=== PATIENT | female | born 1965 | race Caucasian/White ===

== ENCOUNTER 2024-11-21 13:17 | Emergency (ER) | payer MEDICAID ==
[~2024-11-21] VITALS: Ht 165.1 cm; Wt 64.2 kg
--- NOTE | 2024-11-21 14:23 | ELECTROCARDIOGRAPH REPORT ---
[facility] Test Date: 2024-11-21 Test Time: 14:20:32 Pat Name: BILLIE MARIANO Department: [facility]-ER Patient ID: [id number] Room: Gender: F Process Laboratory Specialist: : [id number] Requested By: FADY CUMMINS Order Number: [id number] Reading MD: Dr. Anthony Cooper Measurements Intervals [place] Rate: 98 P: 49 TX: 134 QRS: 51 QRSD: 90 T: 43 QT: 339 QTc: 433 Interpretive Statements Sinus tachycardia Atrial premature complexes Borderline T wave abnormalities Electronically Signed On 11-22-2024 6:40:[address] Anthony Cooper Please click the below link to view image of tracing.
--- NOTE | 2024-11-21 14:27 | RADIOLOGY REPORT ---
CHEST RADIOGRAPH Indication: cp Technique: Single frontal view of the chest was obtained COMPARISON: None FINDINGS: Lines and Tubes: None Lungs: Patchy opacities in the bilateral lower lobes. Pleura: No effusion. No pneumothorax. Cardiomediastinal contours: Unremarkable Bones: Unremarkable IMPRESSION: Patchy opacities in the bilateral lower lobes.
[2024-11-21 14:42] LABS: BASOPHILS % (AUTO) 0.4 % (0-1); EOSINOPHILS # (AUTO) 0.1 X10'3 (0-0.9); HEMATOCRIT 36.3 % (35.0-45.0); HEMOGLOBIN 12.6 g/dl (12.0-16.0); LYMPHOCYTES # (AUTO) 1.5 X10'3 (1.1-4.8); MEAN CORPUSCULAR HEMOGLOBIN 31.6 PG (27.0-31.0); MEAN CORPUSCULAR HGB CONC 34.7 g/dL (33.0-36.5); MEAN CORPUSCULAR VOLUME 91.1 FL (78-98); MEAN PLATELET VOLUME 7.2 FL (7.4-10.4); MONOCYTES # (AUTO) 0.7 X10'3 (0-0.9); MONOCYTES % (AUTO) 9.2 % (2-12); NEUTROPHILS # (AUTO) 4.8 X10'3 (1.8-7.7); NEUTROPHILS % (AUTO) 67.4 % (42-75); PLATELET COUNT 270 X10'3 (140-440); RED BLOOD COUNT 3.98 X10'6 (4.20-5.60); RED CELL DISTRIBUTION WIDTH 12.4 % (11.5-14.5); WHITE BLOOD COUNT 7.1 X10'3 (4.5-11.0)
[2024-11-21 14:49] LABS: BILIRUBIN,URINE NEGATIVE (Neg); CLARITY,URINE SLIGHTLY CLOUDY (Clear); COLOR,URINE YELLOW (Yellow); GLUCOSE, URINE NEGATIVE (Neg); KETONES,URINE NEGATIVE (Neg); LEUKOCYTE ESTERASE ,URINE NEGATIVE (Neg); NITRITES, URINE NEGATIVE (Neg); OCCULT BLOOD,URINE NEGATIVE (Neg); PH,URINE 6.5 (4.8-8.0); PROTEIN,URINE NEGATIVE (Neg); UROBILINOGEN,URINE 0.2 E.U/dL (0.2-1.0)
[2024-11-21 14:52] LABS: APTT 28 SECONDS (22-32); INR 1.1 INR; PROTHROMBIN TIME 10.9 SECONDS (9.0-12.0)
[2024-11-21 15:00] LABS: UA COLLECTION TYPE CLN CATCH MIDSTREAM
--- NOTE | 2024-11-21 15:03 | RADIOLOGY REPORT ---
INDICATION: upper abd pain TECHNIQUE: Multiple real-time sonographic images of the abdomen were obtained. COMPARISON: None FINDINGS: The liver is heterogeneous in echogenicity. The liver measures 17cm. No intrahepatic bilia ry ductal dilatation is noted. The gallbladder wall measures 0.2 cm and is unremarkable. No gallstones or sludge is seen. The commo n duct measures 0.5 cm and is unremarkable. No pericholecystic fluid is noted. The right kidney measures 10cm. No hydronephrosis. The pancreas is not well visualized due to obscuration from bowel gas. The visualized portions of the IVC and aorta are grossly unremarkable. IMPRESSION: Hepatic steatosis. 4 mm gallbladder polyp
[2024-11-21 15:04] LABS: RBC,URINE NONE SEEN /HPF (0-2); WBC,URINE 0-4 /HPF (0-4)
[2024-11-21 15:05] LABS: BACTERIA,URINE NONE SEEN /HPF (Neg); CAL OXALATE CRYSTALS 1+ /HPF (NEGATIVE); MUCUS STRANDS FEW /LPF (Neg); SQUAMOUS EPITHELIAL CELL,UR FEW /LPF (FEW)
[2024-11-21 15:18] LABS: ALANINE AMINOTRANSFERASE 29 U/L (12-78); ALBUMIN 3.5 G/DL (3.4-5.0); ALBUMIN/GLOBULIN RATIO 0.9 (1.1-1.5); ALKALINE PHOSPHATASE 85 IU/L (46-116); ASPARTATE AMINO TRANSFERASE 23 U/L (10-37); BILIRUBIN,TOTAL 0.5 MG/DL (0.1-1.0); BLOOD UREA NITROGEN 17 MG/DL (7-18); BUN/CREATININE RATIO 13.8 (10.0-20.0); CALCIUM 9.8 MG/DL (8.5-10.1); CHLORIDE 108 MMOL/L (99-107); CREATININE 1.23 MG/DL (0.40-0.90); GLUCOSE 106 MG/DL (70-104); LIPASE 33 U/L (16-77); POTASSIUM 3.6 MMOL/L (3.5-5.1); TOTAL CARBON DIOXIDE 20.5 MMOL/L (24-32); TOTAL PROTEIN 7.3 G/DL (6.4-8.2); eCRCL 45 ML/MIN; eGFR 45 ML/MIN
[2024-11-21 15:21] VITALS: BP 120/68; PULSE 98; TEMP 98.4; O2SAT 100
[2024-11-21 15:22] LABS: ANION GAP 15 (8-16); SODIUM 143 MMOL/L (135-145)
--- NOTE | 2024-11-21 15:27 | RADIOLOGY REPORT ---
Exam: CT CT ABDOMEN PELVIS History: pain upper abd Comparison Study: None Technique: Multidetector spiral CT of the abdomen and pelvis was performed from lung bases to pubic symphysis. Imaging was performed without IV contrast. Axial, coronal and sagittal multiplanar reform ats were obtained from the axial data set by the technologist. Radiation dose : Abdomen/Pelvis: CTDIvol 12 mGy, DLP 606 mGy*cm. Findings: Evaluation of solid organs is limited due to lack of intravenous contrast use. Lung Bases: No acute or significant lung base finding. Normal heart size. No pleural or pericardial effusion. Liver: The liver is normal in size. No focal lesions. Gallbladder and biliary Tree: Unremarkable Spleen: Unremarkable Pancreas: The pancreas is grossly normal in appearance. Adrenal Glands: Right adrenal nodule measuring up to 14 mm. Kidneys: Left lower pole renal calculus measuring up to 3 mm. No hydronephrosis. Bladder: Grossly unremarkable for degree of distention. Bowel: The stomach is grossly normal in appearance. Small bowel loops in the left abdomen with wall t hickening. Fluid in the colon. Normal appendix is visualized in the right lower quadrant without find ings of appendicitis. Ascites: Trace free fluid in the pelvis. Lymphadenopathy: Subcentimeter retroperitoneal and mesenteric lymph nodes. Abdominal wall and Mesentery: Diffuse mesenteric nodularity, largest measuring up to 40 mm in the lef t mid abdomen. Vasculature: The visualized abdominal aorta is normal in size and caliber. Evaluation of abdominal a nd pelvic vessels is limited due to lack of intravenous contrast. Pelvic Organs: Unremarkable Musculoskeletal: Grade 1 anterolisthesis of L4 on L5 and L5 on S1. IMPRESSION: 1. Abnormal CT of the abdomen and pelvis. Diffuse peritoneal carcinomatosis with largest mass in the left mid abdomen measuring up to 40 mm. Findings are concerning for a malignant process. There is s mall bowel wall thickening in the left mid abdomen which could be primary source. Recommend further evaluation with CT of the abdomen and pelvis with intravenous contrast. Consider PET-CT. CT-guided b iopsy of the largest peritoneal mass could also be performed. 2. Right adrenal nodule. Left renal calculus. Trace pelvic ascites. Subcentimeter retroperitoneal an d mesenteric lymph nodes. Radiation optimization: All CT scans at this facility use at least one of these dose optimization mary hniques: Automated exposure control mA and/or kV adjustment per patient size (includes targeted exams where dose is matched to clinical indication) or iterative reconstruction. HS:Y
[2024-11-21 15:55] VITALS: RESP 16
[2024-11-21] MEDS: HYDROcodone/acetaminophen 5mg/325mg tablet PO ONE (15:55)
[2024-11-21] MEDS: ondansetron 4mg rapidly disintigrating tab PO ONE (15:55)
[2024-11-21] MEDS ORDERED: HYDR-3965 PO (16:30)
--- NOTE | 2024-11-21 16:31 | Physician Documentation ---
History of Present Illness Chief Complaint: Abdominal Pain w/vomiting Stated Complaint: GALL BLADDER PAIN Time Seen by MD: 15:38 HPI 59-year-old female reports a chief complaint abdominal pain and diarrhea. Patient states she has a history of methamphetamine use and states she has wits methamphetamines for the past several weeks. Patient states that she began to have abdominal pain and diarrhea for over three weeks and states that she is having a significant watery diarrhea. There has not improved. States she has a lower abdominal discomfort. Denies nausea or vomiting. Denies bloody stools denies blood in her urine. Denies fevers or chills. No other complaints at this time Medication Reconciliation Allergies: Coded Allergies: No Known Allergies (Unverified , 11/21/24) Physical Exam Vital Signs: Temperature: 98.4, Source: Oral, Heart Rate: 98, Respiratory Rate: 16, BP: 120/68, Pulse Oximetry: 100, Weight: 64.200 Oxygen Flow Rate: 0 Physical Exam General: Well developed, well nourished, no distress. HEENT: Atraumatic, normal conjunctiva, moist mucous membranes. Neck: Full range of motion, supple. Respiratory: Lungs clear, no respiratory distress. Chest: No accessory muscle use, nontender. Cardiovascular: Regular rate and rhythm. Gastrointestinal: Soft, nontender, nondistended. Bowel sounds present. Extremities: Normal range of motion, nontender, normal capillary refill, no deformity. Back: No midline tenderness, no CVA tenderness. Neurologic: Oriented x4. Distal gross motor and sensory intact all four extremities. Moves all 4 extremities spontaneously. Psychiatric: Normal mood and affect. Skin: Normal color, warm and dry. No edema, no ecchymosis Progress Results/Orders Results/Orders Orders - FADY SAN Chest,Single View (11/21/24 13:43) Ct Abdomen Pelvis (11/21/24 14:31) Ultrasound Of Abdomen (11/21/24 13:47) Completed Orders - FADY SAN Electrocardiogram (11/21/24 13:43) Cbc/Diff (11/21/24 13:43) Lipase (11/21/24 13:43) Pt Inr (11/21/24 13:43) PTT (11/21/24 13:43) Chest,Single View (11/21/24 13:43) Ct Abdomen Pelvis (11/21/24 14:31) CMP (11/21/24 13:43) LA (11/21/24 13:43) Ultrasound Of Abdomen (11/21/24 13:47) Ondansetron Disint. Tablet (Zofran Odt T (11/21/24 13:50) Hydrocodone/Apap 5/325mg Tab (Hiram 5/32 (11/21/24 13:50) Ua W/Microscopic, Cult If Ind (11/21/24 13:22) Medications Received in ER Medications (Trade) Dose Ordered Sig/Cy Route PRN Reason Start Time Stop Time Status Last Admin Dose Admin (Zofran ODT tablet) 4 mg ONCE ONCE PO 11/21/24 13:50 11/21/24 13:51 DC 11/21/24 15:55 4 MG (Hiram 5/325mg tablet) 1 tab ONCE ONCE PO 11/21/24 13:50 11/21/24 13:51 DC 11/21/24 15:55 1 TAB Vital Signs 11/21/24 11/21/24 11/21/24 13:20 15:21 15:55 Temp 98.4 98.4 Pulse 104 98 Resp 16 16 16 B/P (MAP) 137/74 120/68 (85) Pulse Ox 98 100 O2 Flow Rate 0 0 Laboratory Tests Test 11/21/24 13:22 11/21/24 14:34 Urine Specimen Description Cln catch midstream Urine Color Yellow Urine Clarity Slightly cloudy Urine pH 6.5 Urine Specific [place] 1.020 Urine Protein Negative Urine Glucose (UA) Negative Urine Ketones Negative Urine Occult Blood Negative Urine Nitrite Negative Urine Bilirubin Negative Urine Urobilinogen 0.2 Urine Leukocyte Esterase Negative Urine RBC None seen Urine WBC 0-4 Urine Squamous Epithelial Cells Few Urine Calcium Oxalate Crystals 1+ Urine Bacteria None seen Urine Mucus Few Urine Culture Indicated Not ind Volume Urine Centrifuged 10 ml Urine Comment White Blood Count 7.1 Red Blood Count 3.98 L Hemoglobin 12.6 Hematocrit 36.3 Mean Corpuscular Volume 91.1 Mean Corpuscular Hemoglobin 31.6 H Mean Corpuscular Hemoglobin Concent 34.7 Red Cell Distribution Width 12.4 Platelet Count 270 Mean Platelet Volume 7.2 L Neutrophils (%) (Auto) 67.4 Lymphocytes (%) (Auto) 21.0 Monocytes (%) (Auto) 9.2 Eosinophils (%) (Auto) 2.0 Basophils (%) (Auto) 0.4 Neutrophils # (Auto) 4.8 Lymphocytes # (Auto) 1.5 Monocytes # (Auto) 0.7 Eosinophils # (Auto) 0.1 Basophils # (Auto) 0.0 CBC Comment Prothrombin Time 10.9 INR International Normalized Ratio 1.1 Activated Partial Thromboplast Time 28 Coagulation Comments Sodium Level 143 Potassium Level 3.6 Chloride Level 108 H Carbon Dioxide Level 20.5 L Anion Gap 15 Blood Urea Nitrogen 17 Creatinine 1.23 H Estimated GFR/1.73 m2 45 BUN/Creatinine Ratio 13.8 Glucose Level 106 H Lactic Acid Level 1.4 Calcium Level 9.8 Total Bilirubin 0.5 Aspartate Amino Transf (AST/SGOT) 23 Alanine Aminotransferase (ALT/SGPT) 29 Alkaline Phosphatase 85 Total Protein 7.3 Albumin 3.5 Globulin 3.8 Albumin/Globulin Ratio 0.9 L Lipase 33 Chemistry Comments Medical Decision Making Additional info obtained from: old records Findings After detailed discussion jet medical decision-making, diagnostic imaging results were discussed with patient. At this time patient does not appear to have evidence of potential metastatic abdominal cancer based on CT findings. I did discuss this with the patient and I did contact patient's PCP and they will see here within the next week. Patient does not have evidence of bowel obstruction or evidence of sepsis and patient will not be admitted at this time. CT scan results were given to the patient. Patient will be given medication for pain. ER precautions were given. Patient is stable upon discharge. All patient questions answered to satisfaction Differential Dx:Considerations: Include: Other (Bowel obstruction, gastritis, C diff, dehydration) Departure Disposition: HOME / SELF CARE / HOMELESS Impression: Primary Impression: Abdominal pain Additional Impressions: Abdominal mass Diarrhea Metastasis Condition: Stable Discharge Instructions: Abdominal Pain (Nonspecific) Referrals: NO PRIMARY CARE PROVIDER (PCP) Prescriptions Hydrocodone Bit/Acetaminophen 5/325 MG (Hiram 5/325 MG) 5 Mg/325 Mg Tablet 1 TAB PO Q12H PRN PRN for pain for 5 Days, #30 TAB Prov: FADY SAN 11/21/24 Education Educated: Patient Educated regarding: diagnosis, treatment Critical Care Note Total Time (mins): 44 Critical Care Note metastatic cancer Signature Scribe Signature: none used Attestation: Scribed for Fady San Pa by Fady PRATT . 11/21/24 16:33 FADY SAN November 21, 2024 16:31
== END 2024-11-21 16:40 | disposition home or self-care (01) ==
LOC: ER 13:18
DX: C76.2 Malignant neoplasm of abdomen (principal); R10.84 Generalized abdominal pain; R19.7 Diarrhea, unspecified; R19.00 Intra-abdominal and pelvic swelling, mass and lump, unspecified site
CPT/HCPCS: 36415; 71045; 74176; 76700; 80053; 81001; 83605; 83690; 85025; 85610; 85730; 93005; 99291

== ENCOUNTER 2025-01-15 11:19 | Inpatient (IN) | payer MEDICAID ==
[~2025-01-15] VITALS: Ht 165.1 cm; Wt 67.0 kg
[2025-01-15] VITALS (8 sets, daily range): BP systolic 88–117; BP diastolic 38–64; PULSE 83–102; RESP 13–21; O2SAT 89–94
[2025-01-15] MEDS: normal saline 1000ml 1,000 ML IV ONE ×4 (11:43→17:24)
[2025-01-15 11:48] LABS: MEAN PLATELET VOLUME 7.7 FL (7.4-10.4); RED CELL DISTRIBUTION WIDTH 17.2 % (11.5-14.5)
[2025-01-15] MEDS: CefTRIAXone/D5W-Rocephin 1gm 50 ML IV ONE (11:52)
[2025-01-15] MEDS: ondansetron/PF 4mg/2ml inj IV ONE ×2 (12:02→12:05)
[2025-01-15 12:09] LABS: CREATININE 7.05 MG/DL (0.40-0.90); PRO BRAIN NATRIURETIC PEPTIDE 1655 PG/ML (0-125); TOTAL CARBON DIOXIDE 34.9 MMOL/L (24-32); eCRCL 8 ML/MIN; eGFR 6 ML/MIN
--- NOTE | 2025-01-15 12:11 | RADIOLOGY REPORT ---
CHEST RADIOGRAPH Indication: CP Technique: Single frontal view of the chest was obtained COMPARISON: DI CHEST,SINGLE VIEW on DOS: 11/21/24 FINDINGS: Lines and Tubes: None Lungs: Multifocal airspace disease Pleura: No effusion. No pneumothorax. Cardiomediastinal contours: Unremarkable Bones: Unremarkable IMPRESSION: Multifocal airspace disease
[2025-01-15] MEDS ORDERED: NORepinephrine 32mg/250mL bag 250 ML IV SCH (12:45)
--- NOTE | 2025-01-15 13:05 | RADIOLOGY REPORT ---
CHEST RADIOGRAPH Indication: confirm central line placement Technique: Single frontal view of the chest was obtained COMPARISON: DI CHEST,SINGLE VIEW on DOS: 01/15/25, DI CHEST,SINGLE VIEW on DOS: 11/21/24 FINDINGS: Lines and Tubes: Right central venous catheter extends laterally towards the axillary vein. Lungs: Multifocal airspace disease Pleura: No effusion. No pneumothorax. Cardiomediastinal contours: Cardiomegaly Bones: Unremarkable IMPRESSION: Right central venous catheter extends laterally towards the axillary vein.
[2025-01-15] MEDS: NORepinephrine 8mg/ 250ml NS 250 ML IV SCH (13:06)
[2025-01-15 13:13] LABS: LEUKOCYTE ESTERASE ,URINE NEGATIVE (Neg); NITRITES, URINE NEGATIVE (Neg); OCCULT BLOOD,URINE NEGATIVE (Neg)
[2025-01-15 13:14] LABS: UA COLLECTION TYPE FOLEY CATH
[2025-01-15 13:24] LABS: SQUAMOUS EPITHELIAL CELL,UR MANY /LPF (FEW)
[2025-01-15] MEDS: potassium CL 10mEq/100ml bag 100 ML IV SCH (13:24)
[2025-01-15] MEDS: POTASSIUM CHLORIDE 20 MEQ/15 ML oral solution PO ONE (13:25)
[2025-01-15 13:26] LABS: MUCUS STRANDS MODERATE /LPF (Neg)
[2025-01-15] MEDS ORDERED: morphine 4 MG/ML inj SYRINge IV PRN (13:50)
[2025-01-15] MEDS ORDERED: magnesium hydroxide 30ml (MOM) UD suspension PO PRN (13:50)
[2025-01-15 13:51] LABS: URINE AMPHETAMINE SCREEN NEGATIVE (Neg); URINE BARBITUATE SCREEN NEGATIVE (Neg); URINE BENZODIAZEPINES SCREEN NEGATIVE (Neg); URINE METHADONE SCREEN NEGATIVE (Neg)
[2025-01-15 13:52] LABS: URINE CANNABINOID SCREEN NEGATIVE (Neg); URINE COCAINE SCREEN NEGATIVE (Neg); URINE OPIATE SCREEN POSITIVE (Neg); URINE PHENCYCLIDINE SCREEN NEGATIVE (Neg)
[2025-01-15] MEDS: potassium Cl 20mEq/100mL bag 100 ML IV ONE (13:57)
--- NOTE | 2025-01-15 13:57 | HISTORY AND PHYSICAL-Residence ---
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 with Dr. Joaquín Ruiz (she constantly flipping the words about the management at [facility]) presented to the ER with chief complaints of abdominal pain. Endorses abdominal pain mostly around the belly button for the past 10 days, severe, spasmodic, rated 10/10 and radiating to back without any aggravating and relieving factors. Complained of vomiting with whatever she is eating liquid and solid and without any hematemesis and david blood. Endorses loose stools 2-3 episodes per day for the past 1 week. Reports abdominal distention and shortness of breath for the past 10 days. Endorses decreased urine output. Denied swelling of legs, chest pain, cough, wheezing, palpitations. Allergies: Coded Allergies: No Known Allergies (Unverified , 01/15/25) Home Medications Home Medications Active Past Medical History Past Medical History Hypertension CVA with right hemiparesis Past Surgical History Surgical History Comment Right hand surgery Past Social History Social History Comment Couple of beers in a day for more than 25 years Smoking: Quit less than 1 year, Cigarettes, Greater than 1 pack/day Alcohol Use: Heavy Drug Use: Methamphetamine Lives with: Family Lives In: Home ROS All Other Systems: Reviewed and Negative ROS Reviewed in full and negative except positive pertinent as in HPI Exam Vitals: Vital Signs Date Time Temp Pulse Resp B/P (MAP) Pulse Ox O2 Delivery O2 Flow Rate FiO2 01/15/25 13:11 87 18 100/43 (62) 94 2.0 01/15/25 11:20 96.8 General: General: Alert, awake but not oriented to place and person. In mild respiratory distress HEENT: PERRL, moist oral mucosa, EOMI in mild respiratory distress Pulmonary: No respiratory distress . No crepitations/wheeze Cardiac: tachycardic, irregular. Steele S1-S2. no murmurs/rubs. GI: Soft to firm in consistency, distended, periumbilical tenderness is present. No guarding, no rigidity, no rebound tenderness, no discoloration. MSK: no deformity. 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 Small wall thickening in the left midabdomen which could be primary source. WBCs are elevated 12.3, neutrophilia with elevation of lactic acid, 2.1 and trended further down to 1.6 with resuscitation Blood pressures are on soft side and improving with fluid resuscitation with 1 L and currently on normal saline of 100 mL/hour and norepinephrine. ANSELMO Renal tubular stasis versus obstructive ANSELMO Hypokalemia Hypocalcemia Hyperphosphatemia Serum creatinine is 7.25, BUN 119 and BUN to creatinine ratio of 16.9. Potassium is 2.2. On potassium, magnesium, phosphorus replacement protocol Ordered CT abdominal and pelvis to rule out obstructive ANSELMO Continue to monitor CMP Acute hypoxemic respiratory failure pneumonia with possible sepsis Chest x-ray showing multifocal airspace disease Received 1 dose of ceftriaxone and on on 1 g of ceftriaxone daily dose Initially requiring more oxygen, saturation is 92 with 5 L but trended down to 2 L of oxygen flow with a saturation of 94 Leukocytosis with neutrophilia Normocytic normochromic anemia Leukocytosis with neutrophilia likely suggestive of presumtive infection/sepsis Started on ceftriaxone UA is negative for UTI Severe protein malnutrition Hypoalbuminemia Albumin is 1.8. Code status: DNR DVT prophylaxis: Heparin subQ Diet: NPO PT: Ordered Prognosis: Poor Disposition: family meeting through telephone on tomorrow for end of life care goals/palliative care Terrence cooney ICU resident, PGY 2 Date of Service: Jan 15, 2025 Billing Provider: RUKHSANA DOUGLAS MD, VENKATESH, RES Jan 15, 2025 13:57
--- NOTE | 2025-01-15 14:05 | Physician Documentation ---
History of Present Illness ~ Chief Complaint: Hypotension Stated Complaint: SYNCOPE Time Seen by MD: 11:22 OK to notify your PCP?: Yes Primary Medical Doctor: [facility] HPI 59 year old female with recent diagnosis of disseminated stomach cancer BIB EMS who reports that she was found at a friend's house, weak and hypotensive. On arrival she reports that she feels like she cannot breathe. Other history is difficult to obtain because the patient is uncomfortable and a poor historian. Medication Reconciliation Allergies: Coded Allergies: No Known Allergies (Unverified , 01/15/25) Scheduled Apixaban (Eliquis), 1 TAB PO BID, (Reported) Fentanyl Patch 12 MCG* (Duragesic 12 MCG*), 1 PATCH TD Q72H, (Reported) Lisinopril/Hydrochlorothiazide (Lisinopril-Hctz 20-12.5 mg Tab), 2 TAB PO DAILY, (Reported) Polyethylene Glycol 3350 (Aez0300), 17 GM PO DAILY, (Reported) Scheduled PRN Albuterol Sulfate (Proair Respiclick), 2 PUFFS IH Q4H PRN for SOB or wheezing, (Reported) Lorazepam (Ativan), 1 MG PO Q6H PRN for anxiety, (Reported) ONDANSETRON ODT 4mg tablet (Ondansetron Odt), 1 TAB PO Q6H PRN for nausea/vomiting, (Reported) Oxycodone Hcl (Oxycodone Hcl), 1 TAB PO Q3H PRN for pain, (Reported) Prochlorperazine Maleate (Prochlorperazine Maleate), 1 SUPP RC BID PRN for nausea/vomiting, (Reported) Trazodone HCl (Trazodone HCl), 1 TAB PO HS PRN for sleep, (Reported) Discontinued Medications Levofloxacin (Levofloxacin), 1 TAB PO DAILY, (Reported) Discontinued Reason: Other Ondansetron 8mg ODT (Ondansetron Odt), 1 TAB PO TID, (Reported) Discontinued Reason: Other Oxycodone Hcl/Acetaminophen 5/325 MG* (Percocet 5/325 MG*), 1-2 TAB PO Q6H PRN for pain, (Reported) Discontinued Reason: Other [Lorazepam], (Reported) Discontinued Reason: Prescription changed [Lorazepam], (Reported) Discontinued Reason: Other Review of Systems All Other Systems at this time: Reviewed and Negative Physical Exam Vital Signs: Temperature: 96.8, Source: Temporal, Heart Rate: 87, Respiratory Rate: 18, BP: 100/43, Pulse Oximetry: 94, Weight: 60.000 Oxygen Flow Rate: 2.0 Physical Exam HEENT: PERRL, moist oral mucosa, EOMI Pulmonary: No respiratory distress Cardiac: tachycardic, no murmurs GI: mildly distended, soft, nontender, no guarding, no rebound MSK: no deformity Skin: w/d/i, no rash Neuro: alert, nonfocal Psych: normal affect Procedures Central Line Lumen: Central Line Procedure: sterile drapes applied Position: internal jugular (R) Anesthesia: local Volume Anesthetic (ccs): 5 Complications: none Post Position: sutured, position confirmed w/ CXR Tolerated Procedure Well?: yes, no complications Progress Results/Orders Reviewed/noted all lab results: Yes Results/Orders Orders - ZACHARIAH GEORGE MD Chest,Single View (01/15/25 11:24) Monitor (01/15/25 11:24) Saline Lock (01/15/25 11:24) Oxygen (01/15/25 11:24) Culture Blood (01/15/25 11:30) Chest,Single View (01/15/25 12:37) Norepinephrine 8mg/ 250ml Ns (Norepineph (01/15/25 12:55) Page Hospitalist (01/15/25 ) Completed Orders - ZACHARIAH GEORGE MD Chest,Single View (01/15/25 11:24) Cbc/Diff (01/15/25 11:24) BMP (01/15/25 11:24) PBNP (01/15/25 11:24) Electrocardiogram (01/15/25 11:24) Hs Troponin I W Calculations (01/15/25 11:24) Hs Troponin I W Calculations (01/15/25 13:24) Hs Troponin I W Calculations (01/15/25 14:24) Drug Screen, Urine (01/15/25 11:25) Ceftriaxone/U9m-Tvpnxtow 1gm (Rocephin 1 (01/15/25 11:30) Lacticsepsis (01/15/25 11:30) Normal Saline 1000ml (0.9% Sodium Chlori (01/15/25 11:40) Ondansetron Inj. (Zofran 4mg/2ml Vial) (01/15/25 12:00) * Transduce Central Line Or Pi (01/15/25 12:34) Chest,Single View (01/15/25 12:37) Lactic,2hr (01/15/25 13:10) Potassium Cl 10meq/100ml Bag (Potassium (01/15/25 13:15) Potassium Cl 20meq/15ml Oral (Potassium (01/15/25 13:15) Ua With Microscopic (01/15/25 12:52) Potassium Cl 20meq/100ml Bag (Potassium (01/15/25 13:20) PHOS (01/15/25 11:33) TSH (01/15/25 11:33) Vital Signs 01/15/25 01/15/25 01/15/25 01/15/25 11:20 12:05 13:06 13:11 Temp 96.8 Pulse 91 84 87 Resp 18 19 18 B/P (MAP) 71/45 79/35 (50) 83/47 100/43 (62) Pulse Ox 92 94 O2 Flow Rate 5.0 2.0 Laboratory Tests Test 01/15/25 11:33 01/15/25 11:35 01/15/25 12:52 01/15/25 13:23 White Blood Count 12.3 H Red Blood Count 2.82 L Hemoglobin 7.9 L Hematocrit 23.9 L Mean Corpuscular Volume 84.5 Mean Corpuscular Hemoglobin 28.1 Mean Corpuscular Hemoglobin Concent 33.2 Red Cell Distribution Width 17.2 H Platelet Count 224 Mean Platelet Volume 7.7 Neutrophils (%) (Auto) 91.1 H Lymphocytes (%) (Auto) 0.4 L Monocytes (%) (Auto) 8.4 Eosinophils (%) (Auto) 0 Basophils (%) (Auto) 0.1 Neutrophils # (Auto) 11.2 H Lymphocytes # (Auto) 0.1 L Monocytes # (Auto) 1.0 H Eosinophils # (Auto) 0.0 Basophils # (Auto) 0.0 CBC Comment Sodium Level 135 Potassium Level 2.2 *L Chloride Level 88 L Carbon Dioxide Level 34.9 H Anion Gap 12 Blood Urea Nitrogen 119 H Creatinine 7.05 H Estimated GFR/1.73 m2 6 BUN/Creatinine Ratio 16.9 Glucose Level 144 H Lactic Acid Level 2.1 H 1.6 Calcium Level 7.7 L Phosphorus Level 8.2 H Troponin I High Sensitivity 15 17 Pro-B-Type Natriuretic Peptide 1655 H Albumin 1.8 L Thyroid Stimulating Hormone (TSH) 0.35 Chemistry Comments Prothrombin Time 15.5 H INR International Normalized Ratio 1.6 Activated Partial Thromboplast Time 35 H Coagulation Comments Urine Specimen Description Ceballos cath Urine Color Yellow Urine Clarity Slightly cloudy Urine pH 5.5 Urine Specific [place] 1.025 Urine Protein 30 H Urine Glucose (UA) Negative Urine Ketones Trace H Urine Occult Blood Negative Urine Nitrite Negative Urine Bilirubin Small Urine Urobilinogen 0.2 Urine Leukocyte Esterase Negative Urine RBC None seen Urine WBC 5-10 H Urine Squamous Epithelial Cells Many Urine Bacteria 3+ Urine Hyaline Casts 5-10 Urine Mucus Moderate Volume Urine Centrifuged 10 ml Urine Comment Urine Opiates Screen Positive Urine Methadone Screen Negative Urine Fentanyl Screen Positive H Urine Barbiturates Screen Negative Urine Phencyclidine Screen Negative Urine Amphetamines Screen Negative Urine Benzodiazepines Screen Negative Urine Cocaine Screen Negative Urine Cannabinoids Screen Negative Drug Screen Comment Troponin I High Sens Percent Delta 13 Troponin I Hi Sens Absolute Change 2 Microbiology Date/Time Source Procedure Growth Status 01/15/25 11:35 Blood Arm Right Blood Culture - Preliminary NEGATIVE (LESS THAN 24 HOURS) Resulted EKG/XRAY/CT/US/VASC/MRI Chest X-Ray : Views: 1 VIEW Indication: weakness Lungs: infiltrate Mediastinum: normal Ribs/Bones: normal Abdomen: normal Impression: pneumonia Medical Decision Making Findings 59 year old female with what appears to be metastatic cancer and undergoing radiation therapy locally, arriving hypoxic and hypotensive. IVF and sepsis workup started, and workup demonstrated probable pneumonia as well as hypokalemia, acute kidney injury compared to prior values likely needing dialysis, and a significant anemia. Placed a central line as the patient appeared to have septic shock and started norepinephrine after 2 liters of fluid did not significantly improve her blood pressure. Spoke with Dr. Earl, our reset merchandiser natural remedy consultant and care transferred to hospitalist for hospice and DNR/DNI. Patient's blood pressure improved with the pressor medication and we also provided replacement potassium. Differential Dx:Considerations: Include: anemia, electrolyte imbalance, encephalopathy, hypoglycemia, hypotension, hypovolemia, renal failure, respiratory failure Additional Information DDx includes sepsis, severe sepsis, septic shock. Departure Disposition: ADMITTED INPATIENT Admitted to Inpatient Unit: to hospitalist Impression: Primary Impression: Septic shock Additional Impressions: Pneumonia Kidney failure Hypokalemia Anemia Condition: Critical Referrals: NO PRIMARY CARE PROVIDER (PCP) Education Educated: Patient Educated regarding: diagnosis, treatment, prognosis Critical Care Note Total Time (mins): 60 Critical Care Note This patient required 60 minutes of critical care time apart from separately billable procedures for records review, consultation with specialists (intensiv ist), fluid resuscitation and blood pressure management, respiratory evaluation and frequent reassessments. Signature Scribe Signature: . Attestation: . ZACHARIAH GEORGE MD Jan 15, 2025 14:05
[2025-01-15 14:31] LABS: APTT 35 SECONDS (22-32); INR 1.6 INR
[2025-01-15 14:40] LABS: PHOSPHORUS 8.2 MG/DL (2.3-4.5)
[2025-01-15 14:41] LABS: OXYGEN SATURATION (MIXED VEN) 48.4 % (60-80); PO2 MIXED VENOUS (TEMP COR) 30.3 mmHg (35-46)
--- NOTE | 2025-01-15 14:48 | ELECTROCARDIOGRAPH REPORT ---
[facility] Test Date: 2025-01-15 Test Time: 11:27:29 Pat Name: BILLIE MARIANO Department: EMERGENCY ROOM Room: [place] [address] Gender: F Supply Clerk: : 1965 Requested By: ZACHARIAH GEORGE Order Number: [id number] Reading MD: Dr. Anthony Cooper Measurements Intervals [place] Rate: 125 P: 0 CO: 0 QRS: 36 QRSD: 176 T: 52 QT: 507 QTc: 732 Interpretive Statements Atrial fibrillation LVH with secondary repolarization abnormality Inferior infarct, old Anterior infarct, old Prolonged QT interval Artifact in lead(s) I,II,III,aVR,aVL,aVF,V1,V2,V3,V4,V5,V6 Electronically Signed On 01-22-2025 20:06:[address] Anthony Cooper Please click the below link to view image of tracing.
[2025-01-15] MEDS ORDERED: sodium phosphate inj. 15 MMOL in dextrose 5%-water 250 ML IV PRN (15:10)
[2025-01-15] MEDS ORDERED: magnesium sulf-water 4G/100mL 100 ML IV PRN (15:10)
[2025-01-15] MEDS ORDERED: potassium Cl 20 mEq SR tablet PO PRN ×2 (15:10)
[2025-01-15] MEDS ORDERED: magnesium sulf-water 2g/50mL 50 ML IV PRN (15:10)
[2025-01-15] MEDS ORDERED: sodium phosphate inj. 30 MMOL in dextrose 5%-water 250 ML IV PRN (15:10)
[2025-01-15] MEDS: K and/or MAG REPLACEMENT MC SCH (15:10)
[2025-01-15] MEDS ORDERED: PER5325T PO (15:38)
[2025-01-15] MEDS ORDERED: LORAZEPAM (15:38)
[2025-01-15] MEDS ORDERED: APIX5TAB3 PO (15:38)
[2025-01-15] MEDS ORDERED: LEVO750T68 PO (15:38)
[2025-01-15] MEDS ORDERED: ONDA-243 PO (15:38)
[2025-01-15] MEDS ORDERED: ONDA-245 PO (15:38)
[2025-01-15] MEDS ORDERED: FENT-90 TD (15:38)
[2025-01-15] MEDS ORDERED: PROC25SU2 RC (15:38)
[2025-01-15] MEDS ORDERED: LISI1TAB51 PO (15:38)
[2025-01-15] MEDS ORDERED: OXYC10TA47 PO (15:38)
[2025-01-15] MEDS ORDERED: POLY510P31 PO (15:38)
[2025-01-15] MEDS ORDERED: TRAZ-251 PO (15:38)
[2025-01-15] MEDS ORDERED: ATI1T PO (16:08)
[2025-01-15] MEDS ORDERED: ALBU90AE IH (16:08)
[2025-01-15] MEDS: COMMUNICATION ORDER 1 EA MISC MC ONE (16:30)
[2025-01-15] MEDS: ondansetron/PF 4mg/2ml inj IV PRN (17:56)
--- NOTE | 2025-01-15 18:07 | RADIOLOGY REPORT ---
Indication: Diffuse peritoneal carcinomatosis with Metastatic GI malignancy Technique: CT axial images of the chest abdomen and pelvis are obtained with intravenous contrast. C oronal and sagittal reformats were obtained. Radiation Dose Information: CTDI volume is 14.5 mGy. Dose-length product is 1333 mGy*cm Comparison: CT CT ABDOMEN PELVIS on DOS: 11/21/24 FINDINGS: The trachea is patent. No pneumothorax. There is extensive pulmonary interlobular septal thickening a nd nodularity/ tree-in-bud nodularity. Small bilateral pleural effusions. Extensive mediastinal and hilar lymphadenopathy that is overall conglomerate appearance. This include s right paratracheal lymph node measuring 4.4 cm, pretracheal lymph node measuring 3.1 cm, right edgar r lymph node measuring 4.9 cm, left suprahilar lymph node measuring 3.6 cm prevascular lymph node kristofer suring 2.2 cm. Bilateral lower lobe consolidation / atelectasis, [id number]-frly-right. Left supraclavicular lymphadenopathy up to 1.6 cm. There is a right internal jugular catheter that appears to course into the right subclavian vein and ends in the right axilla. Small pericardial effusion. Small bilateral pleural effusions. Adrenal glands unremarkable. Fullness of the pancreatic head region measuring 3.8 cm. Liver unremarkable in shape. Gallbladder distention. Kidneys demonstrate no hydronephrosis. Stomach is partially distended. Small bowel loops are normal in caliber. Bowel wall thickening of the proximal transverse colon/ hepatic flexure. Adjacent lymphadenopathy kristofer suring up to 2.5 cm. Aortic atherosclerotic disease. Retroperitoneal lymphadenopathy measuring up to 2.6 cm. Bladder is p artially decompressed by Ceballos catheter. Diffuse omental caking and peritoneal carcinomatosis. Small to moderate volume of ascites fluid. Tcqw-px-hkvcjmbn bilateral sacroiliac degenerative joint disease. Moderate thoracic degenerative disc disease. Severe lumbar degenerative disc disease most pronounced at L4-5 and L5-S1.4 mm anterolisthe sis of L4 upon L5.4 mm anterolisthesis of L5 on S1. IMPRESSION: Overall significant progression of malignancy and metastatic disease since previous CT sc an. Bowel wall thickening of the hepatic flexure of the colon/proximal transverse colon, likely represent ing primary colonic neoplasm. Adjacent lymphadenopathy present. Extensive omental caking and peritoneal carcinomatosis, significantly worsened since previous examina tion. Diffuse pulmonary interlobular septal thickening and tree-in-bud nodularity consistent with lymphangi tic carcinomatosis,miliary spread carcinoma Fullness of the pancreatic head region measuring 3.8 cm could represent synchronous pancreatic neopla sm. Recommend MRI abdomen with and without contrast to further evaluate. Bilateral lobe consolidation, ssxz-tkeduur-mgyv-right. Extensive mediastinal and hilar lymphadenopathy/ metastatic disease as described above. Small bilateral pleural effusions. Retroperitoneal lymphadenopathy consistent with metastatic disease. The right IJ central venous catheter tip courses into the right subclavian vein, terminating in the r ight axilla. Recommend removal / repositioning. Other findings as described.
--- NOTE | 2025-01-15 18:25 | CARDIOLOGY REPORT ---
APPROVED REPORT EXAM: Comprehensive 2D, Doppler, and color-flow Echocardiogram. Patient Location: ED 3 Heart Rate: 90's bpm Rhythm: SINUS Indications CONGESTIVE HEART FAILURE Senior Policy Analyst: NONE Previous echo: NONE 2D Dimensions RVDd 3.7 cm IVSd 1.0 (0.7-1.1cm) LVDd 3.6 cm PWd 1.0 (0.7-1.1cm) IVSs 1.1 (0.8-1.2cm) LVDs 2.5 (2.5-4.0cm) PWs 1.2 (0.8-1.2cm) LVOT Diameter 2.03 (1.8-2.4cm) LVEF(%) 58.2 (>50%) IVC 15.92 mm FS (%) 30.1 % SV 32.6 ml CO 3.1 L/min M-Mode Dimensions Left Atrium(MM) 2.80 (2.5-4.0cm) Aortic Root 2.93 (2.2-3.7cm) Aortic Cusp Exc 1.76 (1.5-2.0cm) Aortic Valve AoV Peak Carlos. 205.3 cm/s AoV VTI 26.5 cm AO Peak GR. 16.9 mmHg AO Mean GR. 11 mmHg LVOT VTI 24.75 cm LVOT Peak Carlos. 135.9 cm/s ALOK(VTI)/BSA 3.04 cm2/m2 ALOK (VTI) 3.04 cm2 Mitral Valve MV E Velocity 59.0 cm/s MV Peak Gr. 3 mmHg MV DECEL TIME 244 ms MV A Velocity 77.3 cm/s MV PHT 60 ms E/A Ratio 0.8 MVA (PHT) 3.67 cm2 MV VMax80.6 cm/s Tricuspid Valve TR P. Velocity 307 cm/s RAP ESTIMATE 10 mmHg TR Peak Gr. 38 mmHg RVSP 48 mmHg LEFT VENTRICLE Normal LV size and wall thickness. Overall systolic function is normal. LVEF is 60%. RIGHT VENTRICLE RV is mildly dilated with normal function. Elevated right heart pressures with an RVSP of 48 mmHg. ATRIA The left atrium size is normal. AORTIC VALVE Trileaflet AV appears mildly sclerotic without stenosis. No insufficiency. MITRAL VALVE Mild MV annular calcification without stenosis. Trace regurgitation. TRICUSPID VALVE TV appears structurally normal with mild regurgitation. PULMONIC VALVE Normal PV without stenosis, physiologic insufficiency. GREAT VESSELS The aortic root is normal in size. IVC is normal in size and collapses less than 50% with inspiration . PERICARDIUM Mild circumferential pericardial effusion with begining stages of hemodynamic compromise. There is sl ight RA collapse, slight MV respiration inflow variation, and RV free wall notching in PSAX view. Other Information Study Quality: Adequate Conclusion Normal LV size and wall thickness. Overall systolic function is normal. LVEF is 60%. RV is mildly dilated with normal function. Elevated right heart pressures with an RVSP of 48 mmHg. The left atrium size is normal. Trileaflet AV appears mildly sclerotic without stenosis. No insufficiency. Mild MV annular calcification without stenosis. Trace regurgitation. TV appears structurally normal with mild regurgitation. Mild circumferential pericardial effusion with begining stages of hemodynamic compromise. There is s light RA collapse, slight MV respiration inflow variation, and RV free wall notching in PSAX view.
[2025-01-15 18:48] LABS: CREATININE 5.49 MG/DL (0.40-0.90); TOTAL CARBON DIOXIDE 28.9 MMOL/L (24-32); eCRCL 10 ML/MIN; eGFR 8 ML/MIN
[2025-01-15] MEDS: potassium Cl 40MEQ/270ML bag 270 ML IV PRN (19:52)
[2025-01-15] MEDS: potassium Cl 40MEQ/1/2NS 520ml 520 ML IV PRN (20:40)
[2025-01-15] MEDS: heparin, porcine 5000 units/ml vial SQ SCH (20:41)
--- NOTE | 2025-01-15 21:26 | ELECTROCARDIOGRAPH REPORT ---
[facility] Test Date: 2025-01-15 Test Time: 21:23:20 Pat Name: BILLIE MARIANO Department: [facility] 2S Patient ID: [facility]-[id number] Room: [facility] B Gender: F Transfer Station Attendant: : 1965 Requested By: JOSE CASTANEDA Order Number: [id number] Reading MD: Dr. aLtia Carroll Measurements Intervals [place] Rate: 86 P: 42 CT: 135 QRS: 57 QRSD: 114 T: 60 QT: 432 QTc: 517 Interpretive Statements Sinus rhythm Atrial premature complex Borderline intraventricular conduction delay Low voltage, extremity leads Minimal ST depression, lateral leads Electronically Signed On 01-16-2025 5:22:[address] Latia Carroll Please click the below link to view image of tracing.
[2025-01-15] MEDS: HYDROmorphone inj. 0.5 MG/0.5 ML DISP.SYRIN IV PRN (21:31)
[2025-01-16] VITALS (25 sets, daily range): BP systolic 85–115; BP diastolic 45–75; PULSE 80–97; RESP 12–21; O2SAT 68–98
[2025-01-16 02:56] LABS: MEAN PLATELET VOLUME 7.5 FL (7.4-10.4); RED CELL DISTRIBUTION WIDTH 17.4 % (11.5-14.5)
[2025-01-16 03:15] LABS: CREATININE 4.61 MG/DL (0.40-0.90); PHOSPHORUS 5.1 MG/DL (2.3-4.5); TOTAL CARBON DIOXIDE 29.5 MMOL/L (24-32); eCRCL 12 ML/MIN; eGFR 10 ML/MIN
[2025-01-16] MEDS: potassium Cl 40MEQ/1/2NS 520ml 520 ML IV ONE (04:57)
[2025-01-16] MEDS: metoclopramide 5 mg/ml inj IV PRN (07:29)
[2025-01-16] MEDS: pantoprazole 40mg Tablet.DR PO SCH (07:30)
[2025-01-16] MEDS: CefTRIAXone/D5W-Rocephin 1gm 50 ML IV SCH (09:49)
[2025-01-16] MEDS: albumin (human) 25% 100 ML IV solution IV ONE (09:50)
--- NOTE | 2025-01-16 11:47 | PROGRESS NOTE- Residence ---
Progress Note - Resident Providers to CC Resident Creating Document: TERRENCE BEASLEY RES ~ Antibiotic Timeout Antibiotic Ordered?: Yes Subjective Seen and examined the patient at bedside today. There is no significant improvement over the night and Blood pressure is on soft side and currently with Levophed and human albumin. Renal function is improving a little bit better with hydration of IV normal saline and human albumin. We are going to discuss hospice/palliative care options with the family today. Objective Vital Signs Date Time Temp Pulse Resp B/P (MAP) Pulse Ox O2 Delivery O2 Flow Rate FiO2 01/16/25 10:00 98.8 93 17 93/58 (70) 74 Nasal Cannula 6.0 Result Diagram: 01/16/25 0230 01/16/25 0230 General: Alert, awake but not oriented to place and person. In mild respiratory distress HEENT: PERRL, moist oral mucosa, EOMI in mild respiratory distress Pulmonary: No respiratory distress . No crepitations/wheeze Cardiac: tachycardic, irregular. Beckham S1-S2. no murmurs/rubs. GI: Soft to firm in consistency, distended, periumbilical tenderness is present. No guarding, no rigidity, no rebound tenderness, no discoloration. MSK: no deformity. No clubbing, no edema Skin: w/d/i, no rash Neurological: alert, no functional neurological deficits Psych: normal affect Coagulation Studies Laboratory Tests Test 01/15/25 11:35 Prothrombin Time 15.5 SECONDS (9.0-12.0) H INR International Normalized Ratio 1.6 INR Activated Partial Thromboplast Time 35 SECONDS (22-32) H Coagulation Comments Advance Care Planning Advanced Care planning: Add on additional 30 min Assessment Assessment 59-year-old female (very poor historian and inconsistent with history giving) with past medical history of hypertension, diffuse peritoneal carcinomatosis with disseminated metastatic gastric carcinoma undergoing radiotherapy at [facility] with Dr. Joaquín Ruiz (she constantly flipping the words about the management at [facility]) presented to the ER with chief complaints of abdominal pain. Endorses abdominal pain mostly around the belly button for the past 10 days, severe, spasmodic, rated 10/10 and radiating to back without any aggravating and relieving factors. Complained of vomiting with whatever she is eating liquid and solid and without any hematemesis and david blood. Endorses loose stools 2-3 episodes per day for the past 1 week. Reports abdominal distention and shortness of breath for the past 10 days. Endorses decreased urine output. 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 Small wall thickening in the left midabdomen which could be primary source. WBCs are elevated 12.3, neutrophilia with elevation of lactic acid, 2.1 and trended further down to 1.6 with resuscitation Blood pressures are on soft side and improving with fluid resuscitation with 1 L and currently on normal saline of 100 mL/hour and norepinephrine. 01/16/2025: Considering her massive disseminated metastatic transverse colon carcinoma, she may be not candidate for therapeutic interventions and we discussed with the family over the telephone about hospice/palliative care options. Pending decision with the family. Circulatory: Hypovolemic shock Map is maintaining over 65 after initial resuscitation with 4 L of normal saline and 200 mL of 25% human albumin. Daily On Levophed and IV normal saline ANSELMO Renal tubular stasis Hypokalemia Hypocalcemia Hyperphosphatemia Serum creatinine is 7.25, BUN 119 and BUN to creatinine ratio of 16.9. Potassium is 2.2. On potassium, magnesium, phosphorus replacement protocol Ordered CT abdominal and pelvis to rule out obstructive ANSELMO Continue to monitor CMP 01/16/2025: Ordered urinary lytes and serum osmolarity. ANSELMO could be secondary to dehydration and hypovolemic shock which could be due to massive disseminated metastatic colon cancer. Currently on Levophed and human albumin and IV normal saline. We will continue to monitor CMP Acute hypoxemic respiratory failure pneumonia with possible sepsis Chest x-ray showing multifocal airspace disease Received 1 dose of ceftriaxone and on on 1 g of ceftriaxone daily dose Initially requiring more oxygen, saturation is 92 with 5 L but trended down to 2 L of oxygen flow with a saturation of 94 01/16/2025 Saturation is maintaining at 91 with 6 L of oxygen through nasal cannula. We will continue ceftriaxone but preliminary blood culture is negative. WBC counts are still elevated, worsened today. Ordered procalcitonin Leukocytosis with neutrophilia, worsened Normocytic normochromic anemia Leukocytosis with neutrophilia likely suggestive of presumtive infection pneumonia/sepsis Started on ceftriaxone UA is negative for UTI We will continue to monitor CBC. Severe protein malnutrition Hypoalbuminemia Albumin is 1.8. Endocrine Blood glucose is in 140s we will continue to monitor with a target of 140-180 Not on any insulin protocol Cardiovascular system Troponins are negative proBNP is elevated could be secondary to ANSELMO Code status: DNR DVT prophylaxis: Heparin subQ Diet: NPO PT: Ordered Prognosis: Very Poor Polysubstance use Alcohol use Methamphetamine use Nicotine use consulted social insurance administrator and we will appreciate the recommendation On moderate alcohol withdrawal protocol with thiamine, folic acid, Ativan, Haldol p.r.n. multivitamin Disposition: Probable comfort care/hospice care on today [facility], PGY 2 Date of Service: Jan 16, 2025 Billing Provider: RUKHSANA DOUGLAS MD,[facility], RES Jan 16, 2025 11:47
[2025-01-16] MEDS ORDERED: haloperidol lactate 5mg/ml inj IM PRN (11:50)
[2025-01-16 12:54] LABS: OSMOLALITY UA 455 MOSM/K (50-1400)
[2025-01-16 13:08] LABS: CREATININE,URINE RANDOM 111.0 MG/DL
[2025-01-16] MEDS: thiamine 100mg/ml 2ml inj. IV SCH (13:15)
[2025-01-16] MEDS ORDERED: POTASSIUM CL IV SCH (13:25)
[2025-01-16] MEDS ORDERED: NORMAL SALINE IV SCH (13:25)
[2025-01-16] MEDS ORDERED: Potassium Cl inj 40 MEQ in normal saline 250ml IV soln 250 ML IV ONE (14:10)
[2025-01-16] MEDS: potassium Cl 20mEq in NS 1,000 ML IV SCH (14:34)
[2025-01-16] MEDS: NORepinephrine 8mg/ 250ml NS 250 ML IV SCH (16:22)
[2025-01-16 19:00] LABS: CREATININE 3.83 MG/DL (0.40-0.90); eCRCL 15 ML/MIN; eGFR 12 ML/MIN
[2025-01-16 19:14] LABS: OSMOLALITY 320 MOSM/K (280-300)
[2025-01-16 20:06] LABS: CREATININE 3.04 MG/DL (0.40-0.90); TOTAL CARBON DIOXIDE 26.4 MMOL/L (24-32); eCRCL 18 ML/MIN; eGFR 16 ML/MIN
[2025-01-17] VITALS (24 sets, daily range): BP systolic 89–128; BP diastolic 38–67; PULSE 79–130; RESP 12–22; O2SAT 87–97
[2025-01-17 02:13] LABS: MEAN PLATELET VOLUME 7.4 FL (7.4-10.4); RED CELL DISTRIBUTION WIDTH 17.6 % (11.5-14.5)
[2025-01-17 02:31] LABS: INR 1.5 INR
[2025-01-17 02:38] LABS: CREATININE 2.46 MG/DL (0.40-0.90); PHOSPHORUS 3.1 MG/DL (2.3-4.5); TOTAL CARBON DIOXIDE 27.8 MMOL/L (24-32); eCRCL 23 ML/MIN; eGFR 20 ML/MIN
[2025-01-17] MEDS: potassium Cl 20mEq in NS 1,000 ML IV ONE (02:57)
[2025-01-17] MEDS: potassium Cl 40MEQ/1/2NS 520ml 520 ML IV ONE (02:58)
--- NOTE | 2025-01-17 06:35 | PROGRESS NOTE ---
Progress Note Dictate Providers to CC ~ Progress Note: No new acute issues. Remains on pressors Central Line/PICC still needed: Yes Ceballos Indications Met/Not Met: F/C Indications Met Antibiotic Ordered?: Yes Subjective Subjective Ill-appearing Objective Vitals Vital Signs Date Time Temp Pulse Resp B/P (MAP) Pulse Ox O2 Delivery O2 Flow Rate FiO2 01/17/25 06:00 99.1 87 15 90/56 (67) 95 Nasal Cannula 6.0 Lab Results: 01/17/2513801/17/25138 Objective Heart: S1-2 reg Lungs: Ronchi Abdomen: Soft, BS (+) Ext: Edema (+) Neuro: awake with episodes on confusion Coagulation Studies Laboratory Tests Test 01/15/25 11:35 01/17/25 01:39 Activated Partial Thromboplast Time 35 SECONDS (22-32) H Prothrombin Time 15.1 SECONDS (9.0-12.0) H INR International Normalized Ratio 1.5 INR Coagulation Comments Problem\Assessment\Plan Additional Plan 1-Metastatic Gastic CA -Supportive Tx 2-Hypotension -Wean off pressors *Condition/Prognosis d/w family who is considering home-hospice Donavan Earl Sepsis Screening Reassessment Date: Jan 17, 2025 RUKHSANA EARL MD Jan 17, 2025 06:35
[2025-01-17] MEDS: nicotine 14mg patch - 24hr TD SCH (08:00)
[2025-01-17] MEDS: multivitamins, therapeutics tablet PO SCH (08:13)
[2025-01-17] MEDS: hydrocortisone sod succ/PF 100mg/2ml inj. IV SCH (09:44)
[2025-01-17] MEDS: folic acid 1mg/0.2ml inj IV SCH (09:51)
[2025-01-17] MEDS ORDERED: DOPamine 400mg/D5W 250ml 250 ML IV SCH (11:25)
[2025-01-17] MEDS: DOPamine 400MG/D5W 250ML CRITICAL CARE IV SCH ×2 (11:57→11:59)
[2025-01-17] MEDS: DOPamine 400mg/D5W 250ml 250 ML IV SCH (12:40)
[2025-01-18] VITALS (27 sets, daily range): BP systolic 76–133; BP diastolic 34–81; PULSE 100–131; RESP 12–30; O2SAT 92–99
--- NOTE | 2025-01-18 01:12 | RADIOLOGY REPORT ---
Clinical History resp change Comparison CXR on 01/15/2025, 1 images. Technique: A single AP/PA chest radiograph was provided for review. Without Contrast BILLIE MARIANO, [id number] FINDINGS: Lungs: Hypoexpanded lungs without pneumothorax. There is a small left pleural effusion. Heart: Enlarged. Mediastinum: Within normal limits. Vasculature: Pulmonary edema. Tubes/lines: None. Osseous structures: No evidence for acute fracture. IMPRESSION: Low lung volumes. Cardiomegaly. Pulmonary edema. Small left pleural effusion. This report was electronically signed by Jose Roberto Roberson MD on 01/18/2025 1:08:23 AM.
[2025-01-18 02:33] LABS: MEAN PLATELET VOLUME 7.4 FL (7.4-10.4); RED CELL DISTRIBUTION WIDTH 17.6 % (11.5-14.5)
[2025-01-18 02:44] LABS: INR 1.3 INR
[2025-01-18 02:49] LABS: CREATININE 1.46 MG/DL (0.40-0.90); PHOSPHORUS 2.7 MG/DL (2.3-4.5); TOTAL CARBON DIOXIDE 26.2 MMOL/L (24-32); eCRCL 38 ML/MIN; eGFR 37 ML/MIN
[2025-01-18 05:12] LABS: HBSAG SCREEN Negative (Negative); HEP B CORE AB, IGM Negative (Negative); HEP B CORE AB, TOT Negative (Negative)
--- NOTE | 2025-01-18 06:12 | PROGRESS NOTE ---
Progress Note Dictate Providers to CC ~ Progress Note: Remains on pressors Central Line/PICC still needed: Yes Ceballos Indications Met/Not Met: F/C Indications Met Antibiotic Ordered?: N/A Subjective Subjective Mild distress Objective Vitals Vital Signs Date Time Temp Pulse Resp B/P (MAP) Pulse Ox O2 Delivery O2 Flow Rate FiO2 01/18/25 05:30 113 21 83/34 (50) 95 Nasal Cannula 6.0 01/18/25 05:00 98.1 Lab Results: 01/18/2521401/18/25214 Objective Heart: S1-2 reg Lungs: Ronchi Abdomen: Soft, BS (+) Ext: Edema (+) Neuro: awake with episodes on confusion Coagulation Studies Laboratory Tests Test 01/15/25 11:35 01/18/25 02:15 Activated Partial Thromboplast Time 35 SECONDS (22-32) H Prothrombin Time 13.4 SECONDS (9.0-12.0) H INR International Normalized Ratio 1.3 INR Coagulation Comments Problem\Assessment\Plan Additional Plan 1-Metastatic Gastris CA -Supportive Tx 2-Hypotension: Etiology? -Wean off pressors Dismal prognosis. Donvaan Earl Sepsis Screening Reassessment Date: Jan 18, 2025 RUKHSANA EARL MD Jan 18, 2025 06:12
[2025-01-19] VITALS (23 sets, daily range): BP systolic 84–117; BP diastolic 41–67; PULSE 85–121; RESP 16–28; TEMP 97.3–97.7; O2SAT 84–100
[2025-01-19 02:33] LABS: MEAN PLATELET VOLUME 7.3 FL (7.4-10.4); RED CELL DISTRIBUTION WIDTH 17.8 % (11.5-14.5)
[2025-01-19 02:43] LABS: INR 1.3 INR
[2025-01-19 02:47] LABS: CREATININE 1.24 MG/DL (0.40-0.90); PHOSPHORUS 2.3 MG/DL (2.3-4.5); TOTAL CARBON DIOXIDE 25.9 MMOL/L (24-32); eCRCL 45 ML/MIN; eGFR 45 ML/MIN
--- NOTE | 2025-01-19 06:16 | PROGRESS NOTE ---
Progress Note Dictate Providers to CC ~ Progress Note: On/Off pressors. No new acute issues overnight Central Line/PICC still needed: Yes Ceballos Indications Met/Not Met: F/C Indications Met Antibiotic Ordered?: No Subjective Subjective Comfortable Objective Vitals Vital Signs Date Time Temp Pulse Resp B/P (MAP) Pulse Ox O2 Delivery O2 Flow Rate FiO2 01/19/25 05:00 97.9 85 20 91/51 (64) 99 Nasal Cannula 6.0 Lab Results: 01/19/2521901/19/25219 Objective Heart: S1-2 reg Lungs: Ronchi Abdomen: Soft, BS (+) Ext: Edema (+) Neuro: awake with episodes on confusion Coagulation Studies Laboratory Tests Test 01/15/25 11:35 01/19/25 02:20 Activated Partial Thromboplast Time 35 SECONDS (22-32) H Prothrombin Time 13.4 SECONDS (9.0-12.0) H INR International Normalized Ratio 1.3 INR Coagulation Comments Problem\Assessment\Plan Additional Plan 1-Metastatic Gastric CA -Awaiting family to decide on Hospice Care -Supportive Tx 2-Hypotension: Etiology? -Wean off pressors Poor Prognosis A Rajat Sepsis Screening Reassessment Date: Jan 19, 2025 RUKHSANA DOUGLAS MD Jan 19, 2025 06:16
[2025-01-19 11:19] LABS: LEUKOCYTE ESTERASE ,URINE TRACE (Neg); NITRITES, URINE NEGATIVE (Neg); OCCULT BLOOD,URINE LARGE (Neg)
[2025-01-19 11:20] LABS: UA COLLECTION TYPE NON-SPECIFIED
[2025-01-19] MEDS ORDERED: phenazopyridine 100mg tablet PO SCH ×3 (11:20→13:00)
[2025-01-19 11:26] LABS: SQUAMOUS EPITHELIAL CELL,UR FEW /LPF (FEW)
[2025-01-19 11:27] LABS: WBC CLUMPS,URINE FEW /HPF (NEGATIVE)
[2025-01-19 11:29] LABS: YEAST MODERATE /HPF (NEGATIVE)
[2025-01-19] MEDS: phenazopyridine 100mg tablet PO SCH (13:10)
--- NOTE | 2025-01-19 20:05 | CONSULTATION REPORT - RESIDENT ---
Consult Providers to CC Resident Creating Document: MICHELLE MARTINES, RES CC: FAYE SAILNAS MD History of Present Illness Reason for Admit\Complaint: Abdominal pain History of Present Illness A 59-year-old female who is a poor historian and has been consistently grieving in pain was initially admitted on 01/15/2025 to the ICU in view of abdominal pain secondary to disseminated metastatic transverse colon carcinoma and hypovolemia. On further stabilization of the patient patient has been transferred to the floors. Per the prior records, patient is undergoing radiotherapy at [facility] oncology with Dr. Joaquín Ruiz. At the time of admission patient had 10/10 spasmodic abdominal pain in the umbilical region for the last 10 days with radiation, associated multiple episodes of vomitings and multiple episodes of loose stools. Allergies: Coded Allergies: No Known Allergies (Unverified , 01/15/25) Home Medications Home Medications Active Reported Proair Respiclick (Albuterol Sulfate) 90 Mcg Aer.pow.ba 2 Puffs IH Q4H PRN Ativan (Lorazepam) 1 Mg Tablet 1 Mg PO Q6H PRN Lisinopril-Hctz 20-12.5 mg Tab (Lisinopril/Hydrochlorothiazide) 20 Mg-12.5 Mg Tablet 2 Tab PO DAILY Trazodone HCl 50 Mg Tablet 1 Tab PO HS PRN Duragesic 12 MCG* (Fentanyl) 12 Mcg Patch 1 Patch TD Q72H [id number] (Polyethylene Glycol 3350) 17 Gram/Dose Powder 17 Gm PO DAILY Ondansetron Odt (Ondansetron HCl) 4 Mg Tab.rapdis 1 Tab PO Q6H PRN Oxycodone Hcl 10 Mg Tablet 1 Tab PO Q3H PRN Eliquis (Apixaban) 5 Mg Tablet 1 Tab PO BID Prochlorperazine Maleate 25 Mg Supp.rect 1 Supp RC BID PRN Past Medical History Past Medical History HTN CVA with right hemiparesis Transverse colon carcinoma, with mets Past Surgical History Surgical History Comment Right hand orthopedic surgeon Past Social History Social History Comment Couple of beers in a day for the last 25 years One pack of cigarettes, quit one year ago Consumes methamphetamine Lives at home by herself ROS ROS All other systems reviewed in full and negative except for the pertinent positives mentioned in the HPI Exam Vitals: Vital Signs Date Time Temp Pulse Resp B/P (MAP) Pulse Ox O2 Delivery O2 Flow Rate FiO2 01/19/25 18:00 97.7 111 28 117/48 (71) 98 Nasal Cannula 6.0 General: General: Alert, awake, not oriented to place person and time, in severe distress secondary to pain HEENT: PERRLA, no icterus, pallor, lymphadenopathy, carotid bruit Respiratory system: Bilateral vesicular breath sounds heard, diffuse crackles heard in bilateral lung regions/conducted breath sounds CVS: S1-S2 heard, no murmurs/rubs/gallop GI: Distended abdomen, generalized tenderness, Soft, nontender, no organomegaly, no guarding/rigidity, bowel sounds present Neuro: No focal neurological deficits present Extremities: No edema cyanosis clubbing/deformities Skin: Warm and dry Diagnostic Data Last Recorded Lab Results: 01/19/2521901/19/25 022 Diagnostic Data: Laboratory Tests Test 01/15/25 11:35 01/19/25 02:20 Activated Partial Thromboplast Time 35 SECONDS (22-32) H Prothrombin Time 13.4 SECONDS (9.0-12.0) H INR International Normalized Ratio 1.3 INR Coagulation Comments Additional Plan Assessment: A 59-year-old female with disseminated gastric carcinoma with metastasis presented to the ED on 01/15/2025 in view of abdominal pain and was admitted to the ICU in view of hypovolemia. Patient is currently transferred to the floors and is being managed by the primary care team for pneumonia with possible sepsis and leukocytosis. 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 Continue IV ceftriaxone and IV azithromycin Continue oxygen supplementation Duo nebs q.4h scheduled., DuoNeb q.2h p.r.n. Mucinex Incentive spirometry Prerenal ANSELMO probably secondary to renal tubular stasis Elevated BUN and creatinine Continue to monitor BMP HFpEF, EF: 60% Possible cor pulmonale Chest x-ray: Low lung volumes, pulmonary congestion, small pleural effusion Echo: RVSP: 48 mmHg IV Lasix 20 mg one time dose, titrate Lasix as required Consider optimization with GDM T medication of the patient does not consider comfort care Pericardial effusion Slight RV compromise Echo: Mild circumferential pericardial effusion with begining stages of hemodynamic compromise. There is slight RA collapse, slight MV respiration inflow variation, and RV free wall notching in PSAX view. The echo was done on the 15 of January Patient is currently stable without any hemodynamic compromise Repeat echo Re-evaluate in a.m. Leukocytosis Secondary to pneumonia WBC count improving Alcohol use disorder Alcohol withdrawal On alcohol withdrawal protocol MVT, thiamine, folic acid Normochromic normocytic anemia Follow up with iron profile, B12 Iron supplementation once daily Code status: DNR Diet: Regular diet DVT prophylaxis: SCD Disposition: Continue care in ortho, follow up with repeat echo and continue discussions about goals of care with the family Michelle Martines MD Internal Medicine, PGY 2 I saw and discussed the pt with the resident team I reviewed her database She was working quite hard to breathe where I saw her on the ortho floor I asked for her to move to PCU I asked for her to be put on HFNC I will change Ceftriaxone to Cefepime at this time Quite ill and prognosis guarded. Date of Service: Jan 19, 2025 Billing Provider: FAYE SALINAS MD, SIVA, RES Jan 19, 2025 20:05 FAYE SALINAS MD Jan 20, 2025 04:16
[2025-01-19] MEDS ORDERED: ipratropium/albuterol 3ml nebule NEB PRN (21:45)
[2025-01-19] MEDS: azithromycin/NS 500mg/250ml 250 ML IV ONE (23:29)
[2025-01-19] MEDS: ipratropium/albuterol 3ml nebule NEB SCH (23:55)
[2025-01-20] VITALS (19 sets, daily range): BP systolic 89–107; BP diastolic 49–64; PULSE 93–115; RESP 14–24; TEMP 96.6–98.4; O2SAT 91–99
[2025-01-20 05:51] LABS: INR 1.3 INR
[2025-01-20 05:57] LABS: % IRON SATURATION 26 % (11-46); MEAN PLATELET VOLUME 8.3 FL (7.4-10.4); RED CELL DISTRIBUTION WIDTH 18.0 % (11.5-14.5)
[2025-01-20 06:04] LABS: CREATININE 1.29 MG/DL (0.40-0.90); PHOSPHORUS 2.0 MG/DL (2.3-4.5); TOTAL CARBON DIOXIDE 26.0 MMOL/L (24-32); eCRCL 43 ML/MIN; eGFR 43 ML/MIN
[2025-01-20] MEDS: guaiFENesin ER 600mg tablet PO SCH (07:27)
[2025-01-20] MEDS: cefepime 1GM in D5W 50mL 50 ML IV SCH (07:39)
[2025-01-20] MEDS ORDERED: CefTRIAXone/D5W-Rocephin 1gm 50 ML IV SCH (08:00)
--- NOTE | 2025-01-20 12:38 | RADIOLOGY REPORT ---
EXAM: DI CHEST,SINGLE VIEW HISTORY: monitor chnages , high oxygen requirment COMPARISON: DI CHEST,SINGLE VIEW on DOS: 01/15/25, DI CHEST,SINGLE VIEW on DOS: 01/15/25, DI CHEST,SING LE VIEW on DOS: 11/21/24, CT scan of the chest dated 01/15/2025 TECHNIQUE: Portable upright AP view of the chest was performed. FINDINGS: There are diffuse bilateral interstitial opacities, with worsening on both sides compared with chest x-ray performed 5 days earlier. No pneumothorax. Probable left pleural effusion. The heart is border line enlarged. There are degenerative changes of both shoulders. The right humeral head is high-ridi ng consistent with significant rotator cuff tendinopathy. IMPRESSION: Worsening diffuse bilateral interstitial opacities which may be due to pneumonia, CHF, and/or metasta tic disease.
[2025-01-20] MEDS ORDERED: cefepime 1GM in D5W 50mL 50 ML IV SCH (14:44)
[2025-01-20 15:03] LABS: ABG BASE EXCESS -2.3 mmol/L (-2.0-3.0); ABG HCO3 20.1 mmol/L (21.0-28.0); ABG OXYGEN SATURATION 98.0 % (94.0-98.0); ABG PCO2 (T) 25.6 mmHg (32.0-45.0); ABG PH (T) 7.511 (7.350-7.450); ABG PO2 (T) 94.8 mmHg (83.0-108.0); ALLEN'S TEST POSITIVE; FCOHb 1.1 % (0.5-1.5); FHHb 2.0 % (0.0-5.0); FIO2 40.0 mmHg/%; FMetHb 0.3 % (0.0-1.5); FO2Hb 96.6 % (94.0-98.0); MODE MASK - BIPAP; PATIENT TEMPERATURE 36.4; TOTAL HEMOGLOBIN 8.5 G/dl (12.0-16.0)
--- NOTE | 2025-01-20 16:44 | PROGRESS NOTE ---
Daily Progress Note Providers to CC ~ Antibiotic Timeout Antibiotic Ordered?: Yes Subjective patient was seen in presence of nursing staff Toshia, charge nurse Gabby, patient's mother today. Patient is able to communicate but how much she understand about her medical issue I am not sure ? As per patient and mother her daughter is the POA for her who lives in [place] ( who has not seen the patient while patient in the CICU ) . patient wants to see her kids and that is the reason she wants to go to [place] and feels that her daughter we will be able to take care of her in terminal illness. Currently she is on high-flow oxygen and seeing her current medical status I am doubtful that she is stable for the transfer to [place]. I did discuss my concerns with the showcase trimmer and patient's mother and Gabby in visit. Patient's case coordination done with the respiratory therapist and repeat x-ray chest ABG and BiPAP started he is in agreement that patient is not a candidate for transferred to [place]. Patient's is extremely frail in very poor prognosis. I did discuss in visit all labs and diagnostic workup and patient's current updated medical conditions in detail. I do not feel comfortable in transferring this patient to [place]. Patient is a hospice candidate. We contacted patient's daughter and daughter is planning to come to [facility]. Objective Vital Signs Date Time Temp Pulse Resp B/P (MAP) Pulse Ox O2 Delivery O2 Flow Rate FiO2 01/20/25 15:30 98 22 Bi-pap 40 01/20/25 15:27 99 01/20/25 14:41 97.6 107/53 (71) 01/20/25 10:45 20.0 Result Diagram: 01/20/25 0444 01/20/25 0444 General-patient is chronically ill-appearing, requiring high-flow oxygen HEENT-atraumatic normocephalic, neck supple without elevated JVD No lymphadenopathy bilaterally. Eyes-no icterus or pallor seen in eyes Chest-coarse breath sounds present all over her lungs to auscultation bilaterally, Heart-S1-S2 normal, regular heart rate no murmur Abdomen bowel sounds positive on auscultation, soft , distended and signs of ascites present, nontender no guarding, no rigidity Skin no active skin rash Neurology-patient is awake and able to talk I am doubtful about her cognitive abilities Extremity- able to move all 4 extremities Psychiatry - patient is not confused or agitated cooperated during physical examination Coagulation Studies Laboratory Tests Test 01/15/25 11:35 01/20/25 04:44 Activated Partial Thromboplast Time 35 SECONDS (22-32) H Prothrombin Time 13.2 SECONDS (9.0-12.0) H INR International Normalized Ratio 1.3 INR Coagulation Comments Problem\Assessment\Plan 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 There is slight RA collapse, slight MV respiration inflow variation, and RV free wall notching in PSAX view. The echo was done on the 15 of January Patient is currently stable without any hemodynamic compromise Leukocytosis Secondary to pneumonia WBC count improving Alcohol use disorder Alcohol withdrawal On alcohol withdrawal protocol MVT, thiamine, folic acid Normochromic normocytic anemia 01/20/25- patient was seen in presence of nursing staff Toshia, charge nurse Gabby, patient's mother today. Patient is able to communicate but how much she understand about her medical issue I am not sure ? As per patient and mother her daughter is the POA for her who lives in [place] ( who has not seen the patient while patient in the CICU ) . patient wants to see her kids and that is the reason she wants to go to [place] and feels that her daughter we will be able to take care of her in terminal illness. Currently she is on high- flow oxygen and seeing her current medical status I am doubtful that she is stable for the transfer to [place]. I did discuss my concerns with the showcase trimmer and patient's mother and Gabby in visit. Patient's case coordination done with the respiratory therapist and repeat x-ray chest ABG and BiPAP started he is in agreement that patient is not a candidate for transferred to [place]. Patient's is extremely frail in very poor prognosis. I did discuss in visit all labs and diagnostic workup and patient's current updated medical conditions in detail. I do not feel comfortable in transferring this patient to [place]. Patient is a hospice candidate. We contacted patient's daughter and daughter is planning to come to [facility]. Patient's prognosis very poor we will continue to follow from hospitalist team in a.m. Date of Service: Jan 20, 2025 Billing Provider: CORI SARGENT MD Common Visit Codes: [id number] INP/OBS CARE(HIGH) CORI SARGENT MD Jan 20, 2025 16:44
[2025-01-20] MEDS: morphine 10mg/ml inj. IV PRN (20:04)
[2025-01-21 06:00] VITALS: BP 101/51; PULSE 112; RESP 27; TEMP 97.4; O2SAT 93
[2025-01-21] MEDS: pantoprazole 40mg Tablet.DR PO SCH (07:30)
[2025-01-21 08:00] VITALS: RESP 23; O2SAT 93
[2025-01-21 13:30] VITALS: RESP 24
--- NOTE | 2025-01-21 14:08 | PROGRESS NOTE ---
Daily Progress Note Providers to CC ~ Antibiotic Timeout Antibiotic Ordered?: No Subjective No acute events overnight. Patient examined at bedside. No new complaints, not in acute distress. I spoke to her son Diego in am who verbalizes understanding and wishes DNR w/ comfort care. I discussed with patient's son all diagnostic workups, comorbidities, prognosis. Patient's son voiced understanding and decided on DNR w/ comfort care status. Started on comfort care measures. Objective Vital Signs Date Time Temp Pulse Resp B/P (MAP) Pulse Ox O2 Delivery O2 Flow Rate FiO2 01/21/25 12:38 18 01/21/25 08:00 93 Nasal Cannula 6.0 01/21/25 06:00 97.4 112 101/51 (68) 01/20/25 15:30 40 Result Diagram: 01/20/2544301/20/25443 Physical Exam General: Generalized weakness, confused, NAD HEENT: Normocephalic, PERRLA Neck: Supple, trachea midline, no JVD Chest: Crackles in b/l lungs Cardiovascular: RRR, S1&S2 GI: Soft and nontender Extremities: No cyanosis/clubbing/or edema FUNERAL LOCATION MANAGER: No focal deficits Musculoskeletal: No paraspinal muscle tenderness, no muscle spasm Skin: Warm and intact Coagulation Studies Laboratory Tests Test 01/15/25 11:35 01/20/25 04:44 Activated Partial Thromboplast Time 35 SECONDS (22-32) H Prothrombin Time 13.2 SECONDS (9.0-12.0) H INR International Normalized Ratio 1.3 INR Coagulation Comments Problem\Assessment\Plan 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 There is slight RA collapse, slight MV respiration inflow variation, and RV free wall notching in PSAX view. The echo was done on the 15 of January Patient is currently stable without any hemodynamic compromise Leukocytosis Secondary to pneumonia WBC count improving Alcohol use disorder Alcohol withdrawal On alcohol withdrawal protocol MVT, thiamine, folic acid Normochromic normocytic anemia 01/20/25- patient was seen in presence of nursing staff Toshia, charge nurse Gabby, patient's mother today. Patient is able to communicate but how much she understand about her medical issue I am not sure ? As per patient and mother her daughter is the POA for her who lives in [place] ( who has not seen the patient while patient in the CICU ) . patient wants to see her kids and that is the reason she wants to go to [place] and feels that her daughter we will be able to take care of her in terminal illness. Currently she is on high- flow oxygen and seeing her current medical status I am doubtful that she is stable for the transfer to [place]. I did discuss my concerns with the caseworker and patient's mother and Gabyb in visit. Patient's case coordination done with the respiratory therapist and repeat x-ray chest ABG and BiPAP started he is in agreement that patient is not a candidate for transferred to [place]. Patient's is extremely frail in very poor prognosis. I did discuss in visit all labs and diagnostic workup and patient's current updated medical conditions in detail. I do not feel comfortable in transferring this patient to [place]. Patient is a hospice candidate. We contacted patient's daughter and daughter is planning to come to [facility]. 01/21: I spoke to her son Diego in [place] who verbalizes understanding and wishes DNR w/ comfort care. I discussed with patient's son all diagnostic workups, comorbidities, prognosis. Patient's son voiced understanding and decided on DNR w/ comfort care status. Started on comfort care measures. Date of Service: Jan 21, 2025 Billing Provider: YADY GALLAGHER Common Visit Codes: [id number] INP/OBS CARE(MOD) Secondary Visit Codes: [id number] CARE PLAN 30 MINUTES YADY GALLAGHER Jan 21, 2025 14:08
[2025-01-21] MEDS: loperamide 2mg capsule PO PRN (14:09)
[2025-01-21 18:00] VITALS: BP 110/52; PULSE 70; RESP 22; TEMP 97.5; O2SAT 90
--- NOTE | 2025-01-21 18:06 | CARDIOLOGY REPORT ---
APPROVED REPORT EXAM: Limited 2D, Doppler, and color-flow Echocardiogram. Patient Location: 3024A Blood Pressure: 107 / 53 mmHg Heart Rate: 90 bpm Rhythm: SINUS Indications EVALUATE FOR PERICADIAL EFFUSION / TAMPONADE Customer Service Cashier: NONE Previous echo: 01/15/25 [facility] EF: 60%; nlLV; mRVE; RVSP 48; mMR; mCIRC PE- W/ HEMO COMP (SL RA; SL MV; SL RV NOTCH) LEFT VENTRICLE Normal LV size with dynamic function. At least mild concentric hypertrophy. LVEF is 70%. RIGHT VENTRICLE RV is increased in size with hyperdynamic function. Slight RV free wall notching observed. ATRIA The left atrium size is normal. Right atrium is mildly dilated with moderate collapse. MITRAL VALVE Limited evalaution due to urgency. Slight MV inspiratory variation demonstrated. PERICARDIUM Small circumferential pericardial effusion with mild signs of hemodynamic compromise. Slight RA ryan apse, Slight RV free wall notching, slight MV inspiratory variation without tamponade. Conclusion Normal LV size with dynamic function. At least mild concentric hypertrophy. LVEF is 70%. RV is increased in size with hyperdynamic function. Slight RV free wall notching observed. The left atrium size is normal. Right atrium is mildly dilated with moderate collapse. Limited evalaution due to urgency. Slight MV inspiratory variation demonstrated. Small circumferential pericardial effusion with mild signs of hemodynamic compromise. Slight RA colla pse, Slight RV free wall notching, slight MV inspiratory variation without tamponade.
[2025-01-21] MEDS: scopolamine 1MG/72H patch 1 PATCH PATCH.TD.3 TD SCH (20:01)
[2025-01-22 10:00] VITALS: BP 97/66; PULSE 107; RESP 20; TEMP 97; O2SAT 93
--- NOTE | 2025-01-22 12:43 | PROGRESS NOTE ---
Daily Progress Note Providers to CC ~ Antibiotic Timeout Antibiotic Ordered?: No Subjective No acute events overnight. Patient examined at bedside. No new complaints, not in acute distress. Continued on comfort cre measures. Pending hospice facility discharge. Objective Vital Signs Date Time Temp Pulse Resp B/P (MAP) Pulse Ox O2 Delivery O2 Flow Rate FiO2 01/21/25 23:54 22 01/21/25 20:00 Nasal Cannula 6.0 01/21/25 18:00 97.5 70 110/52 (71) 90 01/20/25 15:30 40 Result Diagram: 01/20/2544301/20/25443 Physical Exam General: Generalized weakness, confused, NAD HEENT: Normocephalic, PERRLA Neck: Supple, trachea midline, no JVD Chest: Crackles in b/l lungs Cardiovascular: RRR, S1&S2 GI: Soft and nontender Extremities: No cyanosis/clubbing/or edema CAB WORKER: No focal deficits Musculoskeletal: No paraspinal muscle tenderness, no muscle spasm Skin: Warm and intact Coagulation Studies Laboratory Tests Test 01/15/25 11:35 01/20/25 04:44 Activated Partial Thromboplast Time 35 SECONDS (22-32) H Prothrombin Time 13.2 SECONDS (9.0-12.0) H INR International Normalized Ratio 1.3 INR Coagulation Comments Problem\Assessment\Plan 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 I discussed with patient's son all diagnostic workups, comorbidities, prognosis. Patient's son voiced understanding and decided on DNR w/ comfort care status. Started on comfort care measures. Pending hospice facility discharge. Chest x-ray: Low lung volumes, pulmonary congestion, small pleural effusion Echo: RVSP: 48 mmHg Pericardial effusion Slight RV compromise Echo: Mild circumferential pericardial effusion with begining stages of hemodynamic compromise. There is slight RA collapse, slight MV respiration inflow variation, and RV free wall notching in PSAX view. The echo was done on the 15 of January Patient is currently stable without any hemodynamic compromise Leukocytosis Secondary to pneumonia WBC count improving Alcohol use disorder Alcohol withdrawal On alcohol withdrawal protocol MVT, thiamine, folic acid Normochromic normocytic anemia 01/20/25- patient was seen in presence of nursing staff Toshia, charge nurse Gabby, patient's mother today. Patient is able to communicate but how much she understand about her medical issue I am not sure ? As per patient and mother her daughter is the POA for her who lives in [place] ( who has not seen the patient while patient in the CICU ) . patient wants to see her kids and that is the reason she wants to go to [place] and feels that her daughter we will be able to take care of her in terminal illness. Currently she is on high- flow oxygen and seeing her current medical status I am doubtful that she is stable for the transfer to [place]. I did discuss my concerns with the human services case manager and patient's mother and Gabby in visit. Patient's case coordination done with the respiratory therapist and repeat x-ray chest ABG and BiPAP started he is in agreement that patient is not a candidate for transferred to [place]. Patient's is extremely frail in very poor prognosis. I did discuss in visit all labs and diagnostic workup and patient's current updated medical conditions in detail. I do not feel comfortable in transferring this patient to [place]. Patient is a hospice candidate. We contacted patient's daughter and daughter is planning to come to [facility]. Date of Service: Jan 22, 2025 Billing Provider: YADY GALLAGHER Common Visit Codes: [id number] INP/OBS CARE(HIGH) YADY GALLAGHER Jan 22, 2025 12:43
[2025-01-22 18:00] VITALS: BP 85/54; PULSE 99; RESP 8; TEMP 98.1; O2SAT 94
[2025-01-22 20:10] VITALS: RESP 22
[2025-01-23 06:48] VITALS: BP 96/41; PULSE 90; RESP 12; TEMP 97.8; O2SAT 91
[2025-01-23] MEDS: mag hydrox/Alum hydrox/simeth 30ml oral suspension PO ONE (08:00)
[2025-01-23 10:00] VITALS: BP 119/48; PULSE 61; RESP 16; TEMP 98; O2SAT 98
[2025-01-23 10:45] VITALS: RESP 12; O2SAT 91
[2025-01-23] MEDS ORDERED: morphine ORAL 5MG/0.25 ML (Conc. morphine) oral syringe PO PRN (13:40)
[2025-01-23] MEDS: haloperidol lactate 5mg/ml inj IVH PRN (17:13)
[2025-01-23 18:00] VITALS: BP 98/53; PULSE 115; RESP 12; TEMP 98.5; O2SAT 100
[2025-01-23] MEDS: morphine 10mg/0.5ml (conc. morphine) oral syringe PO PRN (19:47)
[2025-01-23 20:00] VITALS: RESP 12; O2SAT 100
[2025-01-24 06:28] VITALS: BP 88/53; PULSE 115; RESP 10; TEMP 97.6; O2SAT 88
--- NOTE | 2025-01-24 06:57 | PROGRESS NOTE ---
Daily Progress Note Providers to CC ~ Antibiotic Timeout Antibiotic Ordered?: No Subjective No acute events overnight. Patient examined at bedside. No new complaints, not in acute distress. Continued on comfort care measures. Objective Vital Signs Date Time Temp Pulse Resp B/P (MAP) Pulse Ox O2 Delivery O2 Flow Rate FiO2 01/24/25 06:28 97.6 115 10 88/53 (65) 88 Nasal Cannula 2.0 01/22/25 20:10 40 Result Diagram: 01/20/2544301/20/25443 Physical Exam General: Generalized weakness, confused, NAD HEENT: Normocephalic, PERRLA Neck: Supple, trachea midline, no JVD Chest: Crackles in b/l lungs Cardiovascular: RRR, S1&S2 GI: Soft and nontender Extremities: No cyanosis/clubbing/or edema PROJECT ARCHITECT: No focal deficits Musculoskeletal: No paraspinal muscle tenderness, no muscle spasm Skin: Warm and intact Coagulation Studies Laboratory Tests Test 01/15/25 11:35 01/20/25 04:44 Activated Partial Thromboplast Time 35 SECONDS (22-32) H Prothrombin Time 13.2 SECONDS (9.0-12.0) H INR International Normalized Ratio 1.3 INR Coagulation Comments Problem\Assessment\Plan 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 I discussed with patient's son all diagnostic workups, comorbidities, prognosis. Patient's son voiced understanding and decided on DNR w/ comfort care status. Started on comfort care measures. Pending hospice facility discharge. Chest x-ray: Low lung volumes, pulmonary congestion, small pleural effusion Echo: RVSP: 48 mmHg Pericardial effusion Slight RV compromise Echo: Mild circumferential pericardial effusion with begining stages of hemodynamic compromise. There is slight RA collapse, slight MV respiration inflow variation, and RV free wall notching in PSAX view. The echo was done on the 15 of January Patient is currently stable without any hemodynamic compromise Leukocytosis Secondary to pneumonia WBC count improving Alcohol use disorder Alcohol withdrawal On alcohol withdrawal protocol MVT, thiamine, folic acid Normochromic normocytic anemia 01/20/25- patient was seen in presence of nursing staff Toshia, charge nurse Gabby, patient's mother today. Patient is able to communicate but how much she understand about her medical issue I am not sure ? As per patient and mother her daughter is the POA for her who lives in [place] ( who has not seen the patient while patient in the CICU ) . patient wants to see her kids and that is the reason she wants to go to [place] and feels that her daughter we will be able to take care of her in terminal illness. Currently she is on high- flow oxygen and seeing her current medical status I am doubtful that she is stable for the transfer to [place]. I did discuss my concerns with the senior case manager and patient's mother and Gabby in visit. Patient's case coordination done with the respiratory therapist and repeat x-ray chest ABG and BiPAP started he is in agreement that patient is not a candidate for transferred to [place]. Patient's is extremely frail in very poor prognosis. I did discuss in visit all labs and diagnostic workup and patient's current updated medical conditions in detail. I do not feel comfortable in transferring this patient to [place]. Patient is a hospice candidate. We contacted patient's daughter and daughter is planning to come to [facility]. Date of Service: Jan 23, 2025 Billing Provider: YADY GALLAGHER Common Visit Codes: [id number] INP/OBS CARE(MOD) YADY GALLAGHER Jan 24, 2025 06:57
[2025-01-24 11:03] VITALS: RESP 14; O2SAT 88
--- NOTE | 2025-01-24 17:20 | PROGRESS NOTE ---
Daily Progress Note Providers to CC ~ Antibiotic Timeout Antibiotic Ordered?: No Subjective No acute events overnight. Patient examined at bedside. No new complaints, not in acute distress. Continued on comfort care measures. Objective Vital Signs Date Time Temp Pulse Resp B/P (MAP) Pulse Ox O2 Delivery O2 Flow Rate FiO2 01/24/25 16:28 16 01/24/25 11:03 88 Nasal Cannula 2.0 40 01/24/25 06:28 97.6 115 88/53 (65) Result Diagram: 01/20/2544301/20/25443 Physical Exam General: Generalized weakness, confused, NAD HEENT: Normocephalic, PERRLA Neck: Supple, trachea midline, no JVD Chest: Crackles in b/l lungs Cardiovascular: RRR, S1&S2 GI: Soft and nontender Extremities: No cyanosis/clubbing/or edema ESL PROFESSOR: No focal deficits Musculoskeletal: No paraspinal muscle tenderness, no muscle spasm Skin: Warm and intact Coagulation Studies Laboratory Tests Test 01/15/25 11:35 01/20/25 04:44 Activated Partial Thromboplast Time 35 SECONDS (22-32) H Prothrombin Time 13.2 SECONDS (9.0-12.0) H INR International Normalized Ratio 1.3 INR Coagulation Comments Problem\Assessment\Plan 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 I discussed with patient's son all diagnostic workups, comorbidities, prognosis. Patient's son voiced understanding and decided on DNR w/ comfort care status. Started on comfort care measures. Pending hospice facility discharge. -01/24: continued on comfort care Chest x-ray: Low lung volumes, pulmonary congestion, small pleural effusion Echo: RVSP: 48 mmHg Pericardial effusion Slight RV compromise Echo: Mild circumferential pericardial effusion with begining stages of hemodynamic compromise. There is slight RA collapse, slight MV respiration inflow variation, and RV free wall notching in PSAX view. The echo was done on the 15 of January Patient is currently stable without any hemodynamic compromise Leukocytosis Secondary to pneumonia WBC count improving Alcohol use disorder Alcohol withdrawal On alcohol withdrawal protocol MVT, thiamine, folic acid Normochromic normocytic anemia 01/20/25- patient was seen in presence of nursing staff Toshia, charge nurse Gabby, patient's mother today. Patient is able to communicate but how much she understand about her medical issue I am not sure ? As per patient and mother her daughter is the POA for her who lives in [place] ( who has not seen the patient while patient in the CICU ) . patient wants to see her kids and that is the reason she wants to go to [place] and feels that her daughter we will be able to take care of her in terminal illness. Currently she is on high- flow oxygen and seeing her current medical status I am doubtful that she is stable for the transfer to [place]. I did discuss my concerns with the employment case manager and patient's mother and Gabby in visit. Patient's case coordination done with the respiratory therapist and repeat x-ray chest ABG and BiPAP started he is in agreement that patient is not a candidate for transferred to [place]. Patient's is extremely frail in very poor prognosis. I did discuss in visit all labs and diagnostic workup and patient's current updated medical conditions in detail. I do not feel comfortable in transferring this patient to [place]. Patient is a hospice candidate. We contacted patient's daughter and daughter is planning to come to [facility]. Date of Service: Jan 24, 2025 Billing Provider: YADY GALLAGHER Common Visit Codes: [id number] INP/OBS CARE(MOD) YADY GALLAGHER Jan 24, 2025 17:20
[2025-01-24] MEDS: diazepam inj 5 MG/ML inj. IV PRN (17:47)
[2025-01-24 18:00] VITALS: BP 85/52; PULSE 125; RESP 10; TEMP 97; O2SAT 84
--- NOTE | 2025-01-25 14:49 | DISCHARGE SUMMARY ---
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, lungs, mediastinum, hilar and retroperitoneal lymph node Hypovolemic shock w/ end-organ damage Prerenal ANSELMO 2/2 severe shock/vasomotor nephropathy Acute hypoxemic respiratory failure 2/2 pneumonia Sepsis 2/2 PNA Underlying COPD- cannot exclude Possible cor pulmonale Alcohol use disorder Alcohol withdrawal Normocytic anemia Cardiac/respiratory arrest secondary to cardiogenic shock Operations\\Procedures: None Consultants: None Complications: Condition on DC: Discharge Summary: History of Present Illness From H&P: "59-year-old female (very poor historian and inconsistent with history giving) with past medical history of hypertension, diffuse peritoneal carcinomatosis with disseminated metastatic gastric carcinoma undergoing radio therapy at [facility] with Dr. Joaquín Ruiz (she constantly flipping the words about the management at [facility]) presented to the ER with chief complaints of abdominal pain. Endorses abdominal pain mostly around the belly button for the past 10 days, severe, spasmodic, rated 10/10 and radiating to back without any aggravating and relieving factors. Complained of vomiting with whatever she is eating liquid and solid and without any hematemesis and david blood. Endorses loose stools 2-3 episodes per day for the past 1 week. Reports abdominal distention and shortness of breath for the past 10 days. Endorses decreased urine output. Denied swelling of legs, chest pain, cough, wheezing, palpitations." Hospital Course Findings were notable for severe hypotension, severe acute kidney injury, CT abdomen/pelvis revealing diffuse peritoneal carcinomatosis with largest mass in the left mid-abdomen 40 mm size, small wall thickening in the left mid-abdomen and chest x-ray findings of pneumonia. Patient was admitted to ICU and was treated with fluid resuscitation, pressor, and albumin. Code status was thorough ly discussed with patient's family and was changed to DNR w/ comfort care on a subsequent hospital day. Patient was provided with comfort care measures and due to cardiac/respiratory arrest on 01/24/25 at 2205. Physical Exam *Problems/Diagnosis: (1) Kidney failure Status: Acute (2) Metastasis Status: Acute (3) Abdominal mass Status: Acute Total Time Spent on D/C: Up to 30 Minutes Date of Service: Jan 24, 2025 Billing Provider: YADY GALLAGHER Common Visit Codes: [id number]-[id number]/OBS DISCH DAY <30MIN YADY GALLAGHER Jan 25, 2025 14:49
== END 2025-01-24 23:40 | DRG 720 ==
LOC: ER 11:19 → ED HOLD 13:57 → CICU 2S 15:30 → ORTHO 4S 01-19 16:33 → PCU 3S 01-20 13:57 → SUR 3N 01-21 13:18
PROVIDERS: ADMIT Internal Medicine Critical Care Medicine; ATTEND Internal Medicine Critical Care Medicine
PROC: BW251ZZ Computerized Tomography (CT Scan) of Chest, Abdomen and Pelvis using Low Osmolar Contrast (ICD-10-PCS; principal; 2025-01-15)
PROC: 05HY33Z Insertion of Infusion Device into Upper Vein, Percutaneous Approach (ICD-10-PCS; 2025-01-15)
PROC: 5A09357 Assistance with Respiratory Ventilation, Less than 24 Consecutive Hours, Continuous Positive Airway Pressure (ICD-10-PCS; 2025-01-20)
PROC: 5A0935A Assistance with Respiratory Ventilation, Less than 24 Consecutive Hours, High Flow/Velocity Cannula (ICD-10-PCS; 2025-01-20)
DX: A41.9 Sepsis, unspecified organism (principal); N17.0 Acute kidney failure with tubular necrosis; J96.01 Acute respiratory failure with hypoxia; R65.21 Severe sepsis with septic shock; I31.39 Other pericardial effusion (noninflammatory); C78.1 Secondary malignant neoplasm of mediastinum; J18.9 Pneumonia, unspecified organism; E83.39 Other disorders of phosphorus metabolism; I46.9 Cardiac arrest, cause unspecified; Z66 Do not resuscitate; C78.89 Secondary malignant neoplasm of other digestive organs; E83.51 Hypocalcemia; C78.6 Secondary malignant neoplasm of retroperitoneum and peritoneum; C18.9 Malignant neoplasm of colon, unspecified; C78.00 Secondary malignant neoplasm of unspecified lung; J44.0 Chronic obstructive pulmonary disease with (acute) lower respiratory infection; K82.4 Cholesterolosis of gallbladder; J44.1 Chronic obstructive pulmonary disease with (acute) exacerbation; F10.939 Alcohol use, unspecified with withdrawal, unspecified; I27.81 Cor pulmonale (chronic); D64.9 Anemia, unspecified; E87.6 Hypokalemia; Z51.5 Encounter for palliative care; I69.351 Hemiplegia and hemiparesis following cerebral infarction affecting right dominant side; Z68.24 Body mass index [BMI] 24.0-24.9, adult
CPT/HCPCS: 36415; 36556; 36600; 71045; 71250; 74176; 80048; 80053; 80305; 81001; 82150; 82330; 82565; 82570; 82607; 82803; 82810; 82948; 83540; 83550; 83605; 83690; 83735; 83880; 83930; 83935; 84100; 84132; 84133; 84145; 84295; 84300; 84443; 84484; 85018; 85025; 85610; 85730; 86704; 86705; 87040; 87081; 87088; 87340; 93005; 93306; 93308; 94640; 94660; 94760; 96361; 96365; 96375; 97034; 97161; 97530; 99285; A4333; A5200; A6213; A6250; A6258; A6449; C1751; C1758; G0378; J0456; J0692; J0696; J1171; J1265; J1630; J1644; J1720; J1938; J2060; J2270; J2274; J2405; J2470; J2765; J3360; J3411; J3480; J3490; J7030; J7040; P9047